=== PATIENT | male | born 1940 | race Caucasian/White ===

== ENCOUNTER 2017-08-31 10:53 | Emergency (ER) | payer OTHER ==
[~2017-08-31 10:53] MED LIST: STATIN MED
[2017-08-31 10:55] VITALS: BP 137/74; PULSE 59; RESP 14; TEMP 98.2; O2SAT 99
[2017-08-31] MEDS ORDERED: APIX5TAB PO (11:11)
[2017-08-31] MEDS ORDERED: CARV3.12 PO (11:11)
[2017-08-31] MEDS ORDERED: PANT40TA3 PO (11:11)
[2017-08-31] MEDS ORDERED: cancer med IM (11:11)
[2017-08-31] MEDS ORDERED: MEGE40TA PO (11:11)
[2017-08-31] MEDS ORDERED: ROSU1TAB6 PO (11:11)
--- NOTE | 2017-08-31 12:13 | PD ---
HPI Chief Complaint: Numbness/Tingling Time Seen by Provider: 11:09 Travel History International Travel<30 days: No Contact w/Intl Traveler<30days: No Traveled to known affect area: No History of Present Illness HPI This is a 77-year-old male with a history of atrial fibrillation on Eliquis and prostate cancer who presents to the emergency department with numbness and tingling in his left arm that's been going on for 1 week. Patient reports that he has decreased sensation in the left arm, worse on the back of the left arm, constant, severe with no associated weakness. He denies any headache. He does say he has some pain in the arm when he extends his arm fully but otherwise his symptoms are painless. He denies any difficulty walking or talking. PFSH Past Medical History Atrial Fibrillation: Yes Cancer: Yes (prostate-on medication) High Cholesterol: Yes Influenza Vaccination: Yes Past Surgical History Surgical History: No Previous Surgery Social History Alcohol Use: No Tobacco Use: No Substance Use: No Allergies-Medications (Allergen,Severity, Reaction): Coded Allergies: No Known Allergies (Unverified Adverse Reaction, Unknown, 08/31/17) Reported Meds & Prescriptions Reported Meds & Active Scripts Active Reported [cancer med] Unknown Dose IM EVERY 4 MONTHS Pantoprazole (Pantoprazole Sodium) 40 Mg Tab 40 Mg PO DAILY Eliquis (Apixaban) 5 Mg Tab 5 Mg PO BID Carvedilol 3.125 Mg Tab 3.125 Mg PO BID Megestrol (Megestrol Acetate) 40 Mg Tab 40 Mg PO HS Rosuvastatin (Rosuvastatin Calcium) 10 Mg Tab 10 Mg PO HS Review of Systems Except as stated in HPI: all other systems reviewed are Neg Physical Exam Narrative GENERAL:Well appearing, no acute distress SKIN: Focused skin assessment warm and dry. HEAD: Atraumatic. Normocephalic. EYES: Pupils equal and round. No injection or drainage. ENT: Moist mucous membranes NECK: Trachea midline. CARDIOVASCULAR: Regular rate and rhythm. No murmur appreciated. RESPIRATORY: Clear to auscultation. Breath sounds equal bilaterally. GASTROINTESTINAL: Abdomen soft, non-tender, nondistended. MUSCULOSKELETAL: No obvious deformities. NEUROLOGICAL: Awake and alert. No obvious cranial nerve deficits. Decreased sensation to light touch along the dorsal aspect of the left forearm compared to the right. No dysarthria or aphasia. No upper or lower extremity drift. No upper extremity ataxia. Visual medrano intact. PSYCHIATRIC: Appropriate mood and affect; insight and judgment normal. Data Data Last Documented VS Vital Signs Date Time Temp Pulse Resp B/P (MAP) Pulse Ox O2 Delivery O2 Flow Rate FiO2 08/31/17 10:55 98.2 59 14 137/74 (95) 99 MDM Medical Decision Making Medical Screen Exam Complete: Yes Emergency Medical Condition: Yes Differential Diagnosis Cervical radiculopathy, peripheral neuropathy, bony metastases, stroke, mass Narrative Course This is a 77-year-old male with a history of atrial fibrillation and prostate cancer who presents to the emergency department with numbness in his left forearm. This is been going on for 1 week and has been persistent and unchanged. In description this is likely a cervical radiculopathy, however the patient does have some concerning risk factors including atrial fibrillation and prostate cancer. This could reflect a thalamic stroke, or an intracranial mass or mass along the cervical axis. I think it prudent to obtain an MRI of the brain and the cervical spine. The patient's are from [place] and tried for 2 hours to get a hold of their insurance company. The insurance company would not accept our faxes of the medical record. They were unable to get approval. I gave the patient a referral to [employer] but did say that if he is able to get approval I think he should come back to the emergency department for these images. Diagnosis Primary Impression: Numbness Patient Instructions: General Instructions Med/Other Pt SpecificInfo: No Change to Meds Disposition: 01 DISCHARGE HOME Condition: Stable Lacie Infante MD Aug 31, 2017 12:13
== END 2017-08-31 13:42 | disposition home or self-care (01) ==
LOC: NEPD 10:53
DX: R20.0 Anesthesia of skin (principal); I48.91 Unspecified atrial fibrillation; E78.00 Pure hypercholesterolemia, unspecified; C61 Malignant neoplasm of prostate
CPT/HCPCS: 99282

== ENCOUNTER 2017-09-02 08:04 | Emergency (ER) | payer OTHER ==
[~2017-09-02] VITALS: Ht 175.3 cm; Wt 86.0 kg
[~2017-09-02 08:04] MED LIST changes: +APIX5TAB PO; +CARV3.12 PO; +MEGE40TA PO; +PANT40TA3 PO; +ROSU1TAB6 PO; -STATIN MED; +cancer med IM
[2017-09-02] MEDS ORDERED: GADODIAMIDE PF 287 MG/ML 20 ML VIAL (for RAD MRI) IVCONTRAST ONE (08:05)
[2017-09-02 08:06] VITALS: BP 162/72; PULSE 57; RESP 13; TEMP 97.5; O2SAT 100
--- NOTE | 2017-09-02 08:40 | PD ---
HPI Chief Complaint: Numbness/Tingling Time Seen by Provider: 08:16 Travel History International Travel<30 days: No Contact w/Intl Traveler<30days: No Traveled to known affect area: No History of Present Illness HPI The patient is a 77-year-old male who presents to the emergency department for left arm numbness and tingling. The patient was evaluated in the emergency department several days ago for similar symptoms, had a CT the brain that was unremarkable. It was recommended that the patient have an MRI, however, is from [place] and states he did not have approval. The patient was referred to a local clinic to obtain an MRI on an outpatient basis. The patient returns today, stating he has approval for his MRI, and continues to have persistent symptoms. The numbness and tingling or located over the radial aspect of the left forearm, it radiates from just distal to the antecubital fossa the radial aspect of the forearm and goes all the way to the wrist. He denies any numbness or tingling of the left hand. The patient does have a history of atrial fibrillation and takes Eliquis. He denies any weakness of the left upper extremity, denies any numbness or tingling of the hand. He denies any company neck pain, difficulty using the lower extremities, dysarthria , or weakness. Symptoms are moderate. The patient is concerned that possibly he has metastasis from prostate cancer to the brain or the neck that is causing his symptoms. PFSH Past Medical History Atrial Fibrillation: Yes Cancer: Yes (prostate-on medication) High Cholesterol: Yes Past Surgical History Surgical History: No Previous Surgery Social History Alcohol Use: No Tobacco Use: No Substance Use: No Allergies-Medications (Allergen,Severity, Reaction): Coded Allergies: No Known Allergies (Unverified Adverse Reaction, Unknown, 08/31/17) Reported Meds & Prescriptions Reported Meds & Active Scripts Active Reported [cancer med] Unknown Dose IM EVERY 4 MONTHS Eliquis (Apixaban) 5 Mg Tab 5 Mg PO BID Carvedilol 3.125 Mg Tab 3.125 Mg PO BID Megestrol (Megestrol Acetate) 40 Mg Tab 40 Mg PO HS Rosuvastatin (Rosuvastatin Calcium) 10 Mg Tab 10 Mg PO HS Review of Systems Except as stated in HPI: all other systems reviewed are Neg Eyes: No: Visual changes HENT: No: Headaches, Lightheadedness Cardiovascular: Positive: Irregular Rhythm (history of atrial fibrillation), No : Chest Pain or Discomfort Respiratory: No: Shortness of Breath Gastrointestinal: No: Nausea, Vomiting Musculoskeletal: No: Limited ROM, Weakness, Pain Neurologic: Positive: Paresthesia, Sensory Disturbance Physical Exam Narrative GENERAL: Awake, alert, pleasant 77-year-old male who appears his stated age and is in no acute respiratory distress. SKIN: Focused skin assessment warm/dry. HEAD: Atraumatic. Normocephalic. EYES: Pupils equal and round. No scleral icterus. No injection or drainage. ENT: No nasal bleeding or discharge. Mucous membranes pink and moist. NECK: Trachea midline. No JVD. CARDIOVASCULAR: Irregularly irregular. No murmur. RESPIRATORY: No accessory muscle use. Clear to auscultation. Breath sounds equal bilaterally. GASTROINTESTINAL: Abdomen soft, non-tender, nondistended. Hepatic and splenic margins not palpable. MUSCULOSKELETAL: Free of the fourth digit left hand. Patient has full range of motion with abduction and adduction as well as extension of the shoulder. He is able fully flex and extend left elbow with supination and pronation. Strength left upper extremity with abduction and abduction and extension is 5 over 5. Strength at the elbow flexion extension is 55. Strength with wrist flexion extension of the left is 5 over 5. [employer] strength is 5 over 5. Patient is able to oppose the thumb and the second digit with strength 5 over 5. Abduction and adduction of the fingers is 5 over 5. Positive left radial pulse. Sensation is symmetric in the radial, median, and ulnar distribution of the left hand. Diminished strength of the radial aspect of the left forearm from just distal to the antecubital fossa to just proximal to the wrist. Strength in lower extremities is 5 over 5. Sensation is symmetrical lower extremities and right upper extremity. NEUROLOGICAL: Awake and alert. No obvious cranial nerve deficits. Motor grossly within normal limits. Normal speech. Diminished sensation is soft touch in the radial aspect the left forearm. PSYCHIATRIC: Appropriate mood and affect; insight and judgment normal. Data Data Last Documented VS Vital Signs Date Time Temp Pulse Resp B/P (MAP) Pulse Ox O2 Delivery O2 Flow Rate FiO2 09/02/17 08:06 97.5 57 13 162/72 (102) 100 Orders Orders Mri Brain W&W/O Contrast (09/02/17 ) Mri C Spine W&W/O Contrast (09/02/17 ) Complete Blood Count With Diff (09/02/17 08:24) Basic Metabolic Panel (Bmp) (09/02/17 08:24) Gadodiamide Pf Inj (Omniscan Pf Inj) (09/02/17 08:05) Labs Laboratory Tests Test 09/02/17 08:30 White Blood Count 4.9 TH/MM3 Red Blood Count 3.73 MIL/MM3 Hemoglobin 12.4 GM/DL Hematocrit 35.2 % Mean Corpuscular Volume 94.4 FL Mean Corpuscular Hemoglobin 33.3 PG Mean Corpuscular Hemoglobin Concent 35.3 % Red Cell Distribution Width 13.5 % Platelet Count 188 TH/MM3 Mean Platelet Volume 8.2 FL Neutrophils (%) (Auto) 67.5 % Lymphocytes (%) (Auto) 18.1 % Monocytes (%) (Auto) 10.2 % Eosinophils (%) (Auto) 3.3 % Basophils (%) (Auto) 0.9 % Neutrophils # (Auto) 3.3 TH/MM3 Lymphocytes # (Auto) 0.9 TH/MM3 Monocytes # (Auto) 0.5 TH/MM3 Eosinophils # (Auto) 0.2 TH/MM3 Basophils # (Auto) 0.0 TH/MM3 CBC Comment DIFF FINAL Differential Comment Blood Urea Nitrogen 25 MG/DL Creatinine 1.24 MG/DL Random Glucose 86 MG/DL Calcium Level 8.9 MG/DL Sodium Level 141 MEQ/L Potassium Level 4.4 MEQ/L Chloride Level 110 MEQ/L Carbon Dioxide Level 24.6 MEQ/L Anion Gap 6 MEQ/L Estimat Glomerular Filtration Rate 57 ML/MIN MDM Medical Decision Making Medical Screen Exam Complete: Yes Emergency Medical Condition: Yes Medical Record Reviewed: Yes Interpretation(s) Laboratory Tests Test 09/02/17 08:30 White Blood Count 4.9 TH/MM3 Red Blood Count 3.73 MIL/MM3 Hemoglobin 12.4 GM/DL Hematocrit 35.2 % Mean Corpuscular Volume 94.4 FL Mean Corpuscular Hemoglobin 33.3 PG Mean Corpuscular Hemoglobin Concent 35.3 % Red Cell Distribution Width 13.5 % Platelet Count 188 TH/MM3 Mean Platelet Volume 8.2 FL Neutrophils (%) (Auto) 67.5 % Lymphocytes (%) (Auto) 18.1 % Monocytes (%) (Auto) 10.2 % Eosinophils (%) (Auto) 3.3 % Basophils (%) (Auto) 0.9 % Neutrophils # (Auto) 3.3 TH/MM3 Lymphocytes # (Auto) 0.9 TH/MM3 Monocytes # (Auto) 0.5 TH/MM3 Eosinophils # (Auto) 0.2 TH/MM3 Basophils # (Auto) 0.0 TH/MM3 CBC Comment DIFF FINAL Differential Comment Blood Urea Nitrogen 25 MG/DL Creatinine 1.24 MG/DL Random Glucose 86 MG/DL Calcium Level 8.9 MG/DL Sodium Level 141 MEQ/L Potassium Level 4.4 MEQ/L Chloride Level 110 MEQ/L Carbon Dioxide Level 24.6 MEQ/L Anion Gap 6 MEQ/L Estimat Glomerular Filtration Rate 57 ML/MIN Last Impressions Cervical Spine MRI 09/02/17 0000 Signed Impressions: Service Date/Time: Saturday, September 02, 2017 10:46 - CONCLUSION: Multilevel degenerative changes as noted above. This appears to be most severe at the level of C3/C4 where there is a disc osteophyte complex contributing to severe left-sided neuroforaminal narrowing there is additional severe bilateral neuroforaminal narrowing present at the level of C6/C7.. Elo Soliz MD Brain MRI 09/02/17 0000 Signed Impressions: Service Date/Time: Saturday, September 02, 2017 10:46 - CONCLUSION: No acute intracranial findings. Parish Mckinney MD Differential Diagnosis Differential diagnosis includes metastasis from prostate cancer, intracranial tumor, CVA, cervical radiculopathy, peripheral neuropathy. Narrative Course IV was established, labs are drawn and sent, and the patient was placed on cardiac telemetry monitoring and continuous pulse oximetry monitoring. MRI of the brain and cervical spine with and without contrast were obtained to evaluate for possible metastasis prostate cancer. Labs are unremarkable. MRI the brain is unremarkable. MRI of the cervical spine does reveal some stenotic changes and degenerative changes. The patient will be placed on Medrol Dosepak and is advised to follow-up with orthopedic and/or neurosurgery if symptoms persist. He is also advised that physical therapy may be beneficial. Diagnosis Primary Impression: Neuropathy Additional Impression: Cervical spinal stenosis Patient Instructions: General Instructions Additional Instructions: Please provide a patient a copy of his MRI results and a copy of the MRI disc at discharge. Follow-up with her primary physician. You may benefit from physical therapy evaluation and referral to neurology and/or neurosurgery if symptoms persist. Med/Other Pt SpecificInfo: Prescription(s) given Scripts Methylprednisolone Dosepak (Medrol Dosepak) 4 Mg Dspk 4 MG PO DIRECTED, #1 DSPK 0 Refills Per Pharmacist direction Prov: Ovi Fernandez MD 09/02/17 Disposition: 01 DISCHARGE HOME Condition: Stable Ovi Fernandez MD Sep 02, 2017 08:40
[2017-09-02 08:42] LABS: AUTOMATED NEUTROPHIL # 3.3 TH/MM3 (1.8-7.7); BASOPHIL % 0.9 % (0.0-2.0); EOSINOPHIL # 0.2 TH/MM3 (0-0.4); EOSINOPHIL % 3.3 % (0.0-4.0); HEMATOCRIT 35.2 % (39.0-51.0); HEMOGLOBIN 12.4 GM/DL (13.0-17.0); LYMPH % 18.1 % (9.0-44.0); LYMPHOCYTE # 0.9 TH/MM3 (1.0-4.8); MEAN CELL VOLUME 94.4 FL (80.0-100.0); MEAN CORPUSCULAR HEMOGLOBIN 33.3 PG (27.0-34.0); MEAN CORPUSCULAR HGB CONC 35.3 % (32.0-36.0); MEAN PLATELET VOLUME 8.2 FL (7.0-11.0); MONO % 10.2 % (0.0-8.0); MONOCYTE # 0.5 TH/MM3 (0-0.9); NEUT % 67.5 % (16.0-70.0); PLATELET COUNT 188 TH/MM3 (150-450); RED BLOOD COUNT 3.73 MIL/MM3 (4.50-5.90); RED CELL DISTRIBUTION WIDTH 13.5 % (11.6-17.2); WHITE BLOOD COUNT 4.9 TH/MM3 (4.0-11.0)
[2017-09-02 09:25] LABS: BICARBONATE 24.6 MEQ/L (21.0-32.0); CALCIUM 8.9 MG/DL (8.5-10.1); CREATININE 1.24 MG/DL (0.60-1.30)
--- NOTE | 2017-09-02 12:20 | RADRPT ---
EXAM DATE/TIME: 09/02/2017 10:46 [facility] COMPARISON: No previous studies available for comparison. INDICATIONS : Left upper extremity numbness. CONTRAST: 17 cc Omniscan (gadodiamide) IV MEDICAL HISTORY : Carcinoma, prostate. SURGICAL HISTORY : None. ENCOUNTER: Initial ACUITY: 1 day PAIN SCORE: 0/10 LOCATION: [facility] TECHNIQUE: Multiplanar, multisequence MRI examination of the cervical spine was performed. FINDINGS: VERTEBRAE: Normal vertebral body height. Homogeneous marrow signal. ALIGNMENT: No evidence of subluxation. CORD: Normal configuration and signal. POST FOSSA: The cerebellar tonsils are normal in position. POST-CONTRAST: No abnormal areas of enhancement are seen. C2-C3: Small posterior central disc bulge. No spinal canal or neuroforaminal narrowing. C3-C4: Focal disc bulge involving the left neural foramina contributing to moderate to severe left-sided ajay roforaminal narrowing. There is posterior disc osteophyte which mildly narrows the thecal sac in AP d imension C4-C5: Posterior central disc protrusion. No significant spinal canal or neuroforaminal narrowing. C5-C6: Posterior disc osteophyte complex and moderate facet degenerative change. Minimal bilateral neurofora britta narrowing. C6-C7: Severe disc desiccation and disc space narrowing with bony productive changes. Posterior disc osteoph yte complex and uncovertebral joint hypertrophy contribute to severe bilateral neuroforaminal narrowi ng. C7-T1: The thecal sac has a normal configuration. There is no evidence of disc herniation or spinal canal s tenosis. The neural foramina are patent bilaterally. CONCLUSION: Multilevel degenerative changes as noted above. This appears to be most severe at the level of C3/C4 where there is a disc osteophyte complex contributing to severe left-sided neuroforaminal narrowing t here is additional severe bilateral neuroforaminal narrowing present at the level of C6/C7.. Elo Soliz MD on September 02, 2017 at 12:04 Board Certified Radiologist. This report was verified electronically.
--- NOTE | 2017-09-02 12:51 | RADRPT ---
EXAM DATE/TIME: 09/02/2017 10:46 [facility] COMPARISON: No previous studies available for comparison. INDICATIONS : Metastatic disease. CONTRAST: 17 cc Omniscan (gadodiamide) IV MEDICAL HISTORY : Carcinoma, prostate. SURGICAL HISTORY : None. ENCOUNTER: Initial ACUITY: 1 day PAIN SCORE: 0/10 LOCATION: cranial TECHNIQUE: Multiplanar, multisequence MRI of the brain was performed both prior to and following the administrat ion of paramagnetic contrast. FINDINGS: CEREBRUM: The ventricles are normal for age. No evidence of midline shift, mass lesion, hemorrhage or acute in farction. No extraaxial fluid collections are seen. The pituitary gland and suprasellar cistern are normal in configuration. WHITE MATTER: No significant signal abnormalities are seen in the white matter. POSTERIOR FOSSA: The cerebellum and brainstem are intact. The 4th ventricle is midline. The cerebellopontine angle is unremarkable. The cerebellar tonsils are normal in position. DIFFUSION IMAGING: No focal areas of restricted diffusion are seen. No evidence of acute infarction. EXTRACRANIAL: The visualized portions of the orbits and paranasal sinuses are unremarkable. POST-CONTRAST: No abnormal areas of parenchymal or dural enhancement. No evidence of blood-brain barrier breakdown. CONCLUSION: No acute intracranial findings. Parish Mckinney MD on September 02, 2017 at 12:45 Board Certified Radiologist. This report was verified electronically.
[2017-09-02] MEDS ORDERED: MEDR4PAK PO (13:11)
== END 2017-09-02 14:38 | disposition home or self-care (01) ==
LOC: NEPC 08:04
DX: G62.9 Polyneuropathy, unspecified (principal); M48.02 Spinal stenosis, cervical region; M25.78 Osteophyte, vertebrae; I48.91 Unspecified atrial fibrillation; E78.00 Pure hypercholesterolemia, unspecified; Z79.01 Long term (current) use of anticoagulants
CPT/HCPCS: 70553; 72156; 80048; 85025; 99285; A9579